=== PATIENT | male | born 1965 | race Caucasian/White ===

== ENCOUNTER 2017-10-02 16:44 | Emergency (ER) | payer BC ==
[2017-10-02 16:44] VITALS: O2SAT 96
[2017-10-02] MEDS ORDERED: TDAP VACCINE 0.5 ML SUS IM ONE ×2 (17:02→17:04)
[2017-10-02 17:07] VITALS: BP 148/83; PULSE 81; RESP 20; TEMP 97.7
[2017-10-02] MEDS ORDERED: LIDOCAINE BUFFERED 1% 50 ML SOL SC ONE (17:08)
[2017-10-02] MEDS ORDERED: CEPHALEXIN 250 MG/5 ML BOTTLE PO ONE (17:15)
[2017-10-02] MEDS ORDERED: LIDOCAINE HCL 1% MPF SOL ONE (17:15)
[2017-10-02] MEDS ORDERED: CEPHALEXIN 250 MG/5 ML BOTTLE ONE (17:21)
== END 2017-10-02 17:47 | disposition home or self-care (01) ==
LOC: ED 16:44
DX: S62.631A Displaced fracture of distal phalanx of left index finger, initial encounter for closed fracture (principal); W31.2XXA Contact with powered woodworking and forming machines, initial encounter
CPT/HCPCS: 73140; 90715; 99285; A9270-GY; J2001

== ENCOUNTER 2017-10-20 12:08 | Outpatient (CLI) | payer BC | END 2017-10-20 12:09 | disposition home or self-care (01) | LOC: CONVCARE 12:08 | PROVIDERS: ATTEND Orthopaedic Surgery | DX: S62.631D Displaced fracture of distal phalanx of left index finger, subsequent encounter for fracture with routine healing (principal) | CPT/HCPCS: 73140 ==

== ENCOUNTER 2018-02-15 14:23 | Emergency (ER) | payer BC ==
[2018-02-15 14:46] VITALS: PULSE 70; RESP 18; TEMP 96.8; O2SAT 98
[2018-02-15] MEDS ORDERED: BACITRACIN 500 U/GM OIN TOP ONE ×2 (14:47)
== END 2018-02-15 15:00 | disposition home or self-care (01) ==
LOC: ED 14:23
DX: S61.203A Unspecified open wound of left middle finger without damage to nail, initial encounter (principal)
CPT/HCPCS: 99282; 99284; A9270-GY

== ENCOUNTER 2018-09-06 08:43 | Day surgery (SDC) | payer BC ==
[~2018-09-06 08:43] MED LIST: LIDOCAINE HCL 1% MPF 30 SOL ONE; PROPOFOL 500 MG/50 ML EMU IV ONE
[2018-09-06 10:56] VITALS: BP 136/80; PULSE 76; RESP 16; TEMP 98.1; O2SAT 94
== END 2018-09-06 11:05 | disposition home or self-care (01) ==
LOC: SURG 08:43
PROVIDERS: ATTEND Surgery
DX: Z12.11 Encounter for screening for malignant neoplasm of colon (principal); Z86.010 Personal history of colon polyps; K57.30 Diverticulosis of large intestine without perforation or abscess without bleeding
CPT/HCPCS: J2001; J2704